=== PATIENT | female | born 1990 | race Caucasian/White ===

== ENCOUNTER 2018-11-09 16:35 | Outpatient (CLI) | payer MEDICAID ==
--- NOTE | 2018-11-17 15:52 | Non Stress Test Report ---
Non Stress Test Datetime Report Generated by CPN: 11/17/2018 15:51 DEMOGRAPHIC EGA NST: 33.2 EGA NST: 32.1 INDICATION Indication for Study: Ordered by Provider Indication for Study: Ordered by Provider Indication for Study (NST) Other: sent from the office for repeat nst VITAL SIGNS Temperature - NST: 98.8 RESP - NST: 16 MONITORING Monitor Explained: Monitor Explained; Test Explained; Patient Verbalized Understanding Monitor Explained: Monitor Explained; Test Explained; Patient Verbalized Understanding Time on Monitor: 11/17/2018 15:10 Time on Monitor: 11/09/2018 16:50 Time off Monitor: 11/17/2018 15:37 Time off Monitor: 11/09/2018 17:14 NST Duration: 27 NST Duration: 24 NST INTERVENTIONS NST Interventions: PO Hydration; Reposition Patient NST Interventions: None Physician Notified NST: Carla Tillman RN Physician Notified NST: DrMalinda Sánchezb BABY A: [id number] BABY A Movement : Present Movement : Present Contraction Frequency : none Contraction Frequency : none FHR Baseline : 140 FHR Baseline : 135 Accelerations : 10X10 Accelerations : 15X15 Decelerations : None Decelerations : None Variability : Moderate 6-25bpm Variability : Moderate 6-25bpm NST Review: Meets Criteria for Reactive NST NST Review: Meets Criteria for Reactive NST NST Review and Verified By : Brian Jaime RN NST Review and Verified By : Nicci Rivas RN NST Results: Reactive NST Results: Reactive NST REPORT Report Trigger: Send Report
== END 2018-11-09 17:22 | disposition home or self-care (01) ==
LOC: LC 16:35
PROVIDERS: ATTEND Obstetrics & Gynecology Gynecology
PROC: 4A1HXCZ Monitoring of Products of Conception, Cardiac Rate, External Approach (ICD-10-PCS; principal; 2018-11-09)
DX: Z34.93 Encounter for supervision of normal pregnancy, unspecified, third trimester (principal)
CPT/HCPCS: 59025

== ENCOUNTER 2018-11-17 15:02 | Outpatient (CLI) | payer MEDICAID | END 2018-11-17 15:47 | disposition home or self-care (01) | LOC: LAB 15:02 → LC 15:47 | PROVIDERS: ATTEND Obstetrics & Gynecology Gynecology | DX: Z34.93 Encounter for supervision of normal pregnancy, unspecified, third trimester (principal); Z3A.33 33 weeks gestation of pregnancy | CPT/HCPCS: 59025 ==

== ENCOUNTER 2019-01-01 23:50 | Inpatient (IN) | payer MEDICAID ==
[2019-01-02] MEDS ORDERED: DINOPROSTONE 10 MG VAGINAL INSERT.SR PV PRN (00:08)
[2019-01-02] MEDS ORDERED: RINGERS SOLUTION,LACTATED 1,000 ML IV PRN (00:08)
[2019-01-02] MEDS ORDERED: RINGERS SOLUTION,LACTATED 300 ML IV ONE (00:08)
[2019-01-02] MEDS ORDERED: MAG HYDROX/AL HYDROX/SIMETH SUSP 30 ML UDCUP PO PRN (00:09)
[2019-01-02] MEDS ORDERED: ZOLPIDEM TARTRATE 5 MG TABLET PO SCH (00:15)
[2019-01-02] MEDS ORDERED: OXYTOCIN/NORMAL SALINE 0 UNIT/0 ML RTUINJ ONE (00:18)
[2019-01-02] MEDS ORDERED: MISOPROSTOL 0.2 MG TABLET ONE ×2 (00:18→11:55)
[2019-01-02] MEDS ORDERED: DINOPROSTONE 10 MG VAGINAL INSERT.SR ONE (00:18)
[2019-01-02] MEDS ORDERED: LIDOCAINE 1% INJ-PF (10 MG/ML) 30 ML SDV ONE ×2 (00:18→11:55)
[2019-01-02] MEDS ORDERED: ZOLPIDEM TARTRATE 5 MG TABLET ONE (00:37)
[2019-01-02 03:49] LABS: ABSOLUTE EOSINOPHILS # (AUTO) 0.1 10^3/uL (0.0-0.6); ABSOLUTE LYMPHOCYTES (AUTO) 2.6 10^3/uL (0.5-4.7); ABSOLUTE MONOCYTES (AUTO) 0.9 10^3/uL (0.1-1.4); ABSOLUTE NEUT (AUTO) 6.3 10^3/uL (1.7-8.2); BASOPHILS % (AUTO) 0.4 % (0-2); EOSINOPHILS % (AUTO) 1.4 % (0-6); HEMATOCRIT 32.8 % (36.0-47.0); HEMOGLOBIN 11.3 g/dL (12.0-15.5); LYMPHOCYTES % (AUTO) 26.1 % (13-45); MEAN CORPUSCULAR HEMOGLOBIN 29.2 pg (27.0-33.4); MEAN CORPUSCULAR HGB CONC 34.4 g/dL (32.0-36.0); MEAN CORPUSCULAR VOLUME 85 fl (80-97); MONOCYTES % (AUTO) 9.1 % (3-13); PLATELET COUNT 389 10^3/uL (150-450); RED BLOOD COUNT 3.87 10^6/uL (3.72-5.28); RED CELL DISTRIBUTION WIDTH 12.8 % (11.5-14.0); TOTAL CELLS COUNTED % (AUTO) 100 %
[2019-01-02 06:55] LABS: APPEARANCE,URINE CLEAR; BILIRUBIN,URINE NEGATIVE (NEGATIVE); COLOR,URINE YELLOW; GLUCOSE, URINE NEGATIVE (NEGATIVE); KETONES,URINE NEGATIVE (NEGATIVE); LEUKOCYTE ESTERASE,URINE NEGATIVE (NEGATIVE); NITRITE,URINE NEGATIVE (NEGATIVE); PROTEIN,URINE NEGATIVE (NEGATIVE); URINE SPECIFIC GRAVITY 1.009; UROBILINOGEN,URINE NEGATIVE mg/dL (<2.0)
[2019-01-02 07:13] LABS: URINE AMPHETAMINES SCREEN NEGATIVE; URINE BARBITURATES SCREEN NEGATIVE; URINE BENZODIAZEPINES SCREEN NEGATIVE; URINE COCAINE SCREEN NEGATIVE; URINE MARIJUANA (THC) SCREEN NEGATIVE; URINE METHADONE SCREEN NEGATIVE; URINE PHENCYCLIDINE SCREEN NEGATIVE
--- NOTE | 2019-01-02 07:20 | Admission Physical ---
Datetime Report Generated by CPN: 01/02/2019 07:20 CURRENT ADMISSION Chief Complaint: Scheduled Induction of Labor Indication for Induction: Maternal Diabetes Admit Impression : Term, Intrauterine ; Induction of Labor Admit Plan: Admit to Unit; Initiate Labor Induction Protocol ALLERGIES Medication Allergies: Yes Medication Allergies: butorphanol/Hallucinations (01/02/2019) Latex: No Latex Allergies OBSTETRICAL HISTORY EDC: 01/03/2019 00:00 : 3 Para: 0 Term: 0 : 0 SAB: 0 IAB: 2 Ectopic: 0 Livin Cesareans: 0 VBACs: 0 Multiple Births: 0 Gestational Diabetes: Yes Rh Sensitization: No Incompetent Cervix: No NONI: No Infertility: No ART Treatment: No Uterine Anomaly: No IUGR: No Hx Previous C/S: No Macrosomia: No Hx Loss/Stillborn: No PIH: No Hx : No Placenta Previa/Abruption: No Depression/PP Depression: No PTL/PROM: No Post Hemorrhage: No Current Procedures: Ultrasound; NST Obstetrical History Comments: G1-EAB G2-EAB G3-current GDM-diet controlled, bilateral cleft lip, IUGR-resolved SEE RECORDS Alcohol: No Marijuana : No Cocaine: No Other Illicit Drugs: No Cigarettes: Never Smoker. [id number] MEDICAL HISTORY Diabetes: Yes Diabetes Type: Gestational Diabetes Blood Transfusion: No Pulmonary Disease (Asthma, TB): No Breast Disease: No Hypertension: No Reversing [place] Surgery: No Heart Disease: No Hosp/Surgery: No Autoimmune Disorder: No Anesthetic Complications: No Kidney Disease: No Abnormal Pap Smear: No Neuro/Epilepsy: No Psychiatric Disorders: Yes Other Medical Diseases: No Hepatitis/Liver Disease: No Significant Family History: No Varicosities/Phlebitis: No Trauma/Violence : No Thyroid Dysfunction: Yes Medical History Comments: Thyromegaly; GDM-diet controlled; Bipolar and Depression-no meds INFECTIOUS HISTORY Gonorrhea: No Genital Herpes: No Chlamydia: No Tuberculosis: No Syphilis: No Hepatitis: No HIV/AIDS Exposure: No Rash or Viral Illness: No HPV: No PHYSICAL EXAM General: Normal HEENT: Normal Neurologic: Normal Thyroid: Normal Heart: Normal Lungs: Normal Breast: Normal Back: Normal Abdomen: Normal Genitourinary Exam: Normal Extremities: Normal DTRs: Normal Pelvic Type: Adequate Vital Signs: Reviewed; Within Normal Limits VAGINAL EXAM Dilatation: 1 Effacement: 0 Station: -3 MEMBRANES Pooling: Positive Membranes: Ruptured Amniotic Fluid Color: Clear FETUS A EGA: 39.6 Monitoring: External US FHR- Baseline: 120 Variability: Moderate 6-25bpm Accelerations: 10X10 Decelerations: None FHR Category: Category II Estimated Weight (gm): 3500 Presentation: Vertex PLANS FOR LABOR AND DELIVERY Labor and Delivery: None Pain Management: Epidural Feeding Preference: Formula Circumcision: Yes INFORMED CONSENT Signature: with User ID: [email or web address]
[2019-01-02] MEDS ORDERED: FAMOTIDINE 20 MG TABLET ONE (09:54)
[2019-01-02] MEDS: FAMOTIDINE 20 MG TABLET PO SCH ×3 (09:55→23:36)
[2019-01-02] MEDS ORDERED: OXYTOCIN/NORMAL SALINE 1,000 ML IV PRN (10:43)
[2019-01-02] MEDS ORDERED: OXYTOCIN/NORMAL SALINE 20 UNIT/1,000 ML RTUINJ IV PRN ×3 (10:44→19:19)
[2019-01-02] MEDS ORDERED: OXYTOCIN 10 UNIT/ML VIAL ONE (11:55)
[2019-01-02] MEDS ORDERED: OXYTOCIN/NORMAL SALINE 20 UNIT/1,000 ML RTUINJ ONE (11:55)
[2019-01-02] MEDS ORDERED: LIDOCAINE 2% JELLY 5 ML TUBE ONE (11:55)
[2019-01-02] MEDS ORDERED: FENTANYL CITRATE INJ/PF 100 MCG/2 ML AMPUL IV ONE (12:43)
[2019-01-02] MEDS ORDERED: FENTANYL CITRATE INJ/PF 100 MCG/2 ML AMPUL ONE ×2 (13:02→15:32)
[2019-01-02] MEDS ORDERED: FENTANYL/BUPIVACAINE/NS/PF 300 MCG/150 ML RTUINJ EPI ONE (15:32)
[2019-01-02] MEDS ORDERED: EPHEDRINE SULFATE INJ 50 MG/1 ML AMPULE ONE (15:32)
[2019-01-02] MEDS ORDERED: PHENYLEPHRINE HCL INJ/PF 10 MG/1 ML SDV ONE (15:32)
[2019-01-02] MEDS ORDERED: BUPIVACAINE HCL 0.25 % INJ/PF (2.5 MG/1 ML) 30 ML VIAL ONE (15:33)
[2019-01-02] MEDS ORDERED: LIDOCAINE 1.5%/EPINEPHRINE INJ-PF 30 ML SDV ONE (15:33)
[2019-01-02] MEDS ORDERED: ONDANSETRON HCL INJ/PF 4 MG/2 ML SDV ONE (17:38)
[2019-01-02] MEDS ORDERED: ONDANSETRON HCL INJ/PF 4 MG/2 ML SDV IV PRN (17:39)
[2019-01-02] MEDS ORDERED: DIPHENHYDRAMINE HCL 25 MG CAPSULE PO PRN (19:19)
[2019-01-02] MEDS ORDERED: PSEUDOEPHEDRINE HCL 30 MG TABLET PO PRN (19:19)
[2019-01-02] MEDS ORDERED: PROMETHAZINE HCL 25 MG TABLET PO PRN (19:19)
[2019-01-02] MEDS ORDERED: ACETAMINOPHEN 650 MG SUPP.RECT PR PRN (19:19)
[2019-01-02] MEDS ORDERED: ACETAMINOPHEN WITH CODEINE #3 TABLET PO PRN ×2 (19:19)
[2019-01-02] MEDS ORDERED: GLYCERIN/WITCH HAZEL LEAF 1 EACH MED..PAD TP PRN (19:19)
[2019-01-02] MEDS ORDERED: MEASLES,MUMPS&RUBELLA VACC/PF 0.5 ML VIAL SUBCUT PRN (19:19)
[2019-01-02] MEDS ORDERED: PROMETHAZINE HCL 25 MG SUPP.RECT PR PRN (19:19)
[2019-01-02] MEDS ORDERED: NA PHOS,M-B/NA PHOS,DI-BA (ADULT) 133 ML ENEMA PR PRN (19:19)
[2019-01-02] MEDS ORDERED: DIPH/PERTUSS(ACELL)/TETANUS VAC/PF 0.5 ML SYR (>=10YO) IM PRN (19:19)
[2019-01-02] MEDS ORDERED: DIBUCAINE 1% OINTMENT 28 GM TP PRN (19:19)
[2019-01-02] MEDS ORDERED: PROMETHAZINE HCL INJ 25 MG/1 ML VIAL IV PRN (19:19)
[2019-01-02] MEDS ORDERED: ZOLPIDEM TARTRATE 5 MG TABLET PO PRN (19:19)
[2019-01-02] MEDS ORDERED: MAGNESIUM HYDROXIDE SUSP 30 ML UDCUP PO PRN (19:19)
[2019-01-02] MEDS ORDERED: ACETAMINOPHEN 325 MG TABLET ONE (19:50)
[2019-01-02] MEDS: ACETAMINOPHEN 325 MG TABLET PO PRN (19:56)
[2019-01-02] MEDS: IBUPROFEN 800 MG TABLET PO SCH (21:33)
--- NOTE | 2019-01-02 21:46 | Delivery Summary ---
Del Sum A-C Datetime Report Generated by CPN: 01/02/2019 21:45 DELIVERY PERSONNEL DELIVERY PERSONNEL: [id number] Delivery Doctor:: Michelle Chino MD Labor and Delivery Nurse:: Miguel Goncalves RNmobile mechanic Nurse:: Nicolasa Cazares RN Nursery Nurse:: Maday Roa RN Esl Professor/MANUFACTURING SPECIALIST: ST Caryn Esl Professor/MANUFACTURING SPECIALIST: Princess Branham, ASSISTANT ANALYST MATERNAL INFORMATION Delivery Anesthesia: Epidural Medications After Delivery: Pitocin Drip 20 Units/1000ml NSS Maternal Complications: Other Complication Details: possible partial abruption Provider Comments: VMI delivered in WOOD presentation. No nuchal cord. Bloody amniotic fluid delivered with baby concern for possible abruption. Shoulders and body delivered without difficulty. Cord doubly clamped and cut and to maternal abdomen. Placenta delivered intact spontaneously. FF at U. Good hemostasis after repair of 2nd degree perineal laceration. Mother and baby stable upon provider leaving the room. LABOR SUMMARY EDC: 01/03/2019 00:00 No. Babies in Womb: 1 Attempted: No Labor Anesthesia: Epidural LABOR INFORMATION Reason for Induction: Maternal Diabetes; Other Reason for Induction- Other: bilateral cleft palet Onset of Labor: 01/02/2019 16:08 Complete Dilatation: 01/02/2019 18:23 Cervical Ripening Agents: Uriarte Balloon Oxytocin: Induction Group B Beta Strep: Negative Steroids Given: None Reason Steroids Not Administered: Not Applicable MEMBRANES Membranes Rupture Method: Spontaneous Rupture of Membranes: 01/02/2019 06:35 Length of Rupture (hr): 12.53 Amniotic Fluid Color: Light Meconium Amniotic Fluid Amount: Small Amniotic Fluid Odor: Normal STAGES OF LABOR Stage 1 hr: 2 Stage 1 min: 15 Stage 2 hr: 0 Stage 2 min: 44 Stage 3 hr: 0 Stage 3 min: 3 Total Time in Labor hr: 3 Total Time in Labor min: 2 VAGINAL DELIVERY Episiotomy: None Laceration #1: Perineal Laceration Extension #1: Second Degree Laceration Repair: Yes Sponge Count Correct: Yes Sharps Count Correct: Yes CSECTION DELIVERY Primary Indication: N/A CSection Incision: N/A BABY A INFORMATION Delivery Date/Time: 01/02/2019 19:07 Method of Delivery: Vaginal Born in Route : No : N/A Forceps: N/A Vacuum Extraction: N/A Shoulder Dystocia : No PRESENTATION/POSITION BABY A Presentation: Cephalic Cephalic Presentation: Vertex Vertex Position: Right Occipital Anterior Breech Presentation: N/A PLACENTA INFORMATION BABY A Placenta Delivery Time : 01/02/2019 19:10 Placenta Method of Delivery: Spontaneous Placenta Status: Delivered SCORES BABY A Heart Rate 1 min: >100 bpm Resp Effort 1 min: Good Cry Reflex Irritability 1 min: Cough or Sneeze or Pulls Away Muscle Tone 1 min: Active Motion Color 1 min: Blue/Pale Resuscitation Effort 1 min: Tactile Stimulation SCORE 1 MIN: 8 Heart Rate 5 min: >100 bpm Resp Effort 5 min: Good Cry Reflex Irritability 5 min: Cough or Sneeze or Pulls Away Muscle Tone 5 min: Active Motion Color 5 min: Body [place], Extremities Blue Resuscitation Effort 5 min: N/A SCORE 5 MIN: 9 INFORMATION BABY A Sex: Male IDENTIFICATION BABY A Verification Date/Time: 01/02/2019 19:26 ID Band Number: [id number] Mother's Name Verified: Yes RN Verifying : C Gentilin, RN WEIGHT/LENGTH BABY A Infant Birthweight (gm): 3126 Infant Weight (lb): 6 Weight (oz): 14 Infant Length (in): 19.25 Length (cm): 48.90 CORD INFORMATION BABY A No. Cord Vessels: 3 Nuchal Cord : N/A Cord Blood Taken: N/A Suction: Mouth ASSESSMENT BABY A Complications: Other Complications- Other: bilateral cleft palate Physical Findings at Delivery: Molding of the Head Infant Respirations: Appears Normal Skin to Skin: Yes Tube And Rod Straightener/ALS Called : No Transferred To: Remains with Mother BABY B INFORMATION : N/A SIGNATURES Signature: Electronically signed by Michelle Chino MD ([facility]) on 01/02/2019 at 19:36 with User ID: [email or web address]
[2019-01-03] MEDS: BENZOCAINE/MENTHOL AEROSOL SPRAY 56 ML TOP PRN (00:21)
[2019-01-03] MEDS: ACETAMINOPHEN 325 MG TABLET PO PRN ×3 (00:21→21:20)
[2019-01-03] MEDS: IBUPROFEN 800 MG TABLET PO SCH ×3 (06:35→21:20)
[2019-01-03 07:28] LABS: HEMATOCRIT 33.7 % (36.0-47.0); HEMOGLOBIN 11.6 g/dL (12.0-15.5); MEAN CORPUSCULAR HEMOGLOBIN 29.2 pg (27.0-33.4); MEAN CORPUSCULAR HGB CONC 34.5 g/dL (32.0-36.0); MEAN CORPUSCULAR VOLUME 85 fl (80-97); PLATELET COUNT 467 10^3/uL (150-450); RED BLOOD COUNT 3.98 10^6/uL (3.72-5.28); RED CELL DISTRIBUTION WIDTH 12.6 % (11.5-14.0)
[2019-01-03] MEDS: DOCUSATE SODIUM 100 MG CAPSULE PO SCH ×2 (09:17→17:13)
[2019-01-03] MEDS: FERROUS SULFATE 325 MG TABLET PO SCH ×2 (09:17→17:13)
[2019-01-03] MEDS: SENNOSIDES/DOCUSATE 8.6-50 MG 1 EACH TABLET PO SCH (09:17)
[2019-01-03] MEDS: FAMOTIDINE 20 MG TABLET PO SCH ×3 (09:17→21:40)
[2019-01-03] MEDS: PRENATAL VITAMIN W DHA CAPSULE PO SCH (09:17)
--- NOTE | 2019-01-03 10:02 | PDOC PROGRESS REPORT ---
Subjective-OB Progress Note for:: 01/03/19 Subjective: 28yo s/p ppd1. Pt ambulating and voiding without difficulty, reports pain well controlled with medication, no concerns at this time.. Physical Exam (OB) Vital Signs: Temp Pulse Resp BP Pulse Ox 98.5 F 84 16 145/95 H 98 01/03/19 08:08 01/03/19 08:08 01/03/19 08:08 01/03/19 08:08 01/03/19 08:08 Intake & Output 01/02/19 01/03/19 01/04/19 06:59 06:59 06:59 Weight 72.4 kg - General General Appearance: Appears well In distress: None - PIH/Pre-Eclampsia Headache: Absent Epigastric Pain: No Visual Changes: No - Episiotomy/Laceration Site Condition: Well Approximated - Lochia Lochia Amount: Small 10-25 ml Lochia Color: Rubra/Red - Abdomen Description: Soft, Round Hernia Present: No Fundal Description: Firm, Midline Fundal Height: u/u - u/2 - Respiratory Respiratory Status: No respiratory distress - Extremities Upper extremity: Normal inspection Lower extremities: Normal inspection - Neurological Cognition: Normal Orientation: AAOx4 - Psychological Associated symptoms: Normal affect, Normal mood Objective-Diagnostic Laboratory: 01/03/19 07:13 01/03/19 07:13 WBC 18.0 H RBC 3.98 Hgb 11.6 L Hct 33.7 L MCV 85 MCH 29.2 MCHC 34.5 RDW 12.6 Plt Count 467 H Assessment and Plan(PN) - Assessment and Plan (1) Vaginal delivery Is this a current diagnosis for this admission?: Yes Plan: Routine pp care. Elevated BP this am, will continue to watch. (2) Perineal laceration during delivery, delivered Is this a current diagnosis for this admission?: Yes Plan: monitor for s/s of infection. (3) Gestational diabetes mellitus, antepartum Qualifiers: Gestational diabetes mellitus control: diet-controlled Qualified Code(s): O24.410 - Gestational diabetes mellitus in , diet controlled Is this a current diagnosis for this admission?: Yes Plan: Routine pp care,follow up in the pp period as indicated - Time Spent with Patient Time with patient: Less than 15 minutes Medications reviewed and adjusted accordingly: Yes - Disposition Anticipated Discharge: Home Within: within 24 hours
[2019-01-04] MEDS: FAMOTIDINE 20 MG TABLET PO SCH ×3 (00:26→13:16)
[2019-01-04] MEDS: IBUPROFEN 800 MG TABLET PO SCH ×2 (05:12→13:15)
[2019-01-04 07:31] LABS: HEMATOCRIT 34.2 % (36.0-47.0); HEMOGLOBIN 11.5 g/dL (12.0-15.5); MEAN CORPUSCULAR HEMOGLOBIN 28.8 pg (27.0-33.4); MEAN CORPUSCULAR HGB CONC 33.6 g/dL (32.0-36.0); MEAN CORPUSCULAR VOLUME 86 fl (80-97); PLATELET COUNT 478 10^3/uL (150-450); RED BLOOD COUNT 3.99 10^6/uL (3.72-5.28); WHITE BLOOD COUNT 14.2 10^3/uL (4.0-10.5)
[2019-01-04 08:28] VITALS: BP 117/77
[2019-01-04] MEDS: FERROUS SULFATE 325 MG TABLET PO SCH (10:05)
[2019-01-04] MEDS: SENNOSIDES/DOCUSATE 8.6-50 MG 1 EACH TABLET PO SCH (10:05)
[2019-01-04] MEDS: PRENATAL VITAMIN W DHA CAPSULE PO SCH (10:05)
[2019-01-04] MEDS: DOCUSATE SODIUM 100 MG CAPSULE PO SCH (10:05)
[2019-01-04] MEDS: ACETAMINOPHEN 325 MG TABLET PO PRN (10:10)
[2019-01-04] MEDS: BENZOCAINE/MENTHOL AEROSOL SPRAY 56 ML TOP PRN (10:11)
--- NOTE | 2019-01-04 10:20 | PDOC PROGRESS REPORT ---
Subjective-OB Progress Note for:: 01/04/19 Subjective: Doing well, no c/o, friend at [facility], discussing cleft lip and palate Physical Exam (OB) Vital Signs: Temp Pulse Resp BP Pulse Ox 98.1 F 72 15 117/77 97 01/04/19 08:27 01/04/19 08:27 01/04/19 08:27 01/04/19 08:27 01/04/19 08:27 Intake & Output 01/03/19 01/04/19 01/05/19 06:59 06:59 06:59 Intake Total 450 480 Balance 450 480 - PIH/Pre-Eclampsia DTR's: 1 + Clonus: Negative Headache: Absent Epigastric Pain: No Visual Changes: No - Lochia Lochia Amount: Scant < 10 ml Lochia Color: Rubra/Red - Abdomen Description: Tender, Soft Hernia Present: No Fundal Description: Firm, Midline Fundal Height: u/u - u/2 Objective-Diagnostic Laboratory: 01/04/19 06:46 01/04/19 06:46 WBC 14.2 H RBC 3.99 Hgb 11.5 L Hct 34.2 L MCV 86 MCH 28.8 MCHC 33.6 RDW 13.0 Plt Count 478 H Assessment and Plan(PN) - Assessment and Plan (1) Vaginal delivery Is this a current diagnosis for this admission?: Yes (2) Perineal laceration during delivery, delivered Is this a current diagnosis for this admission?: Yes (3) Gestational diabetes mellitus, antepartum Qualifiers: Gestational diabetes mellitus control: diet-controlled Qualified Code(s): O24.410 - Gestational diabetes mellitus in , diet controlled Is this a current diagnosis for this admission?: Yes - Time Spent with Patient Medications reviewed and adjusted accordingly: Yes - Disposition Anticipated Discharge: Home Within: within 24 hours
--- NOTE | 2019-01-04 10:29 | PDOC DISCHARGE SUMMARY ---
Final Diagnosis Discharge Date: 01/04/19 - Final Diagnosis (1) Vaginal delivery Is this a current diagnosis for this admission?: Yes (2) Perineal laceration during delivery, delivered Is this a current diagnosis for this admission?: Yes (3) Gestational diabetes mellitus, antepartum Is this a current diagnosis for this admission?: Yes Discharge Data - Discharge Medication Home Medications: Vit,Calc76/Iron/Folic [Prenatabs Rx Tablet] 1 tab PO DAILY 11/09/18 Ranitidine HCl [Zantac 150 mg Tablet] 1 tab PO PRN PRN 01/02/19 Gestational Age: 39.6 Reason(s) for Admission: Induction of Labor, Gestional Diabetes - baby with cleft lip and palate Procedures: NST Intrapartum Procedure(s): Spontaneous Vaginal Delivery Complication(s): Laceration-Perineal Laceration-Degree: 2nd - Diagnosis Test Laboratory: Temp Pulse Resp BP Pulse Ox 98.1 F 72 15 117/77 97 01/04/19 08:27 01/04/19 08:27 01/04/19 08:27 01/04/19 08:27 01/04/19 08:27 01/02/19 01/02/19 01/03/19 03:39 06:35 07:13 RBC 3.87 3.98 Hgb 11.3 L 11.6 L Hct 32.8 L 33.7 L Urine Opiates Screen NEGATIVE 01/04/19 06:46 RBC 3.99 Hgb 11.5 L Hct 34.2 L Urine Opiates Screen - Discharge information/Instructions Discharge Activity: Activity As Tolerated, No Lifting Over 10 Pounds, No Lifting/Push/Pulling, Pelvic Rest Discharge Diet: As Tolerated, Regular Disposition: HOME, SELF-CARE Follow [facility] with: [facility] in: 4, Weeks
== END 2019-01-04 15:24 | disposition home or self-care (01) | DRG 805 ==
LOC: LR 23:50 → 2S 01-02 21:20
PROVIDERS: ADMIT Obstetrics & Gynecology; ATTEND Obstetrics & Gynecology
PROC: 10E0XZZ Delivery of Products of Conception, External Approach (ICD-10-PCS; principal; 2019-01-02)
PROC: 0KQM0ZZ Repair Perineum Muscle, Open Approach (ICD-10-PCS; 2019-01-02)
PROC: 3E033VJ Introduction of Other Hormone into Peripheral Vein, Percutaneous Approach (ICD-10-PCS; 2019-01-02)
PROC: 4A1HX4Z Monitoring of Products of Conception, Cardiac Electrical Activity, External Approach (ICD-10-PCS; 2019-01-02)
PROC: 3E0234Z Introduction of Serum, Toxoid and Vaccine into Muscle, Percutaneous Approach (ICD-10-PCS; 2019-01-04)
DX: O24.410 Gestational diabetes mellitus in pregnancy, diet controlled (principal); O45.93 Premature separation of placenta, unspecified, third trimester; Z37.0 Single live birth; O70.1 Second degree perineal laceration during delivery; Z3A.39 39 weeks gestation of pregnancy; Z23 Encounter for immunization
CPT/HCPCS: 36415; 80307; 81005; 85025; 85027; 86592; 86850; 86870; 86900; 86901; 88307; 90715; C1726; J2370; J2405; J2590; J3010; J3490